=== PATIENT | male | born 1980 | race Caucasian/White ===

== ENCOUNTER 2016-08-16 11:03 | Emergency (ER) | payer BC, OTHER ==
[~2016-08-16] VITALS: Ht 170.2 cm; Wt 92.1 kg
[2016-08-16] MEDS ORDERED: GI COCKTAIL 50ML BTL(HYOSCYAMINE/MAALOX/LIDOCAINE VISCOUS)(1:3:1) PO ONE (12:15)
[2016-08-16] MEDS ORDERED: SUCRALFATE 1 GM TAB PO ONE (12:15)
[2016-08-16] MEDS ORDERED: SUCR1SS PO (12:40)
[2016-08-16] MEDS ORDERED: PROT1TAB2 PO (12:40)
[2016-08-16 12:58] VITALS: BP 117/65
== END 2016-08-16 13:00 | disposition home or self-care (01) ==
LOC: M ED 11:59
DX: K27.9 Peptic ulcer, site unspecified, unspecified as acute or chronic, without hemorrhage or perforation (principal); K21.9 Gastro-esophageal reflux disease without esophagitis; R10.9 Unspecified abdominal pain

== ENCOUNTER → 2016-11-18 | Outpatient (REF) | payer BC, OTHER ==
[~2016-11-18] MED LIST: PROT1TAB2 PO; SUCR1SS PO
[2016-11-18 11:09] LABS: ANION GAP 6 MEQ/L (8-16); BLOOD UREA NITROGEN 16 MG/DL (7-18); CALCIUM LEVEL 8.9 MG/DL (8.5-10.1); CARBON DIOXIDE LEVEL 29 MEQ/L (21-32); CHLORIDE LEVEL 108 MEQ/L (98-107); CHOLESTEROL LEVEL 169 MG/DL (<200); GLOMERULAR FILTRATION RATE > 60.0 (>60); GLUCOSE, FASTING 87 MG/DL (70-105); POTASSIUM SERUM 4.4 MEQ/L (3.5-5.1); SODIUM LEVEL 143 MEQ/L (136-145); TRIGLYCERIDES LEVEL 120 MG/DL (<150)
== END ==
LOC: M LABDRAW1 10:14
PROVIDERS: ATTEND Physician Assistant
DX: Z82.49 Family history of ischemic heart disease and other diseases of the circulatory system (principal)

== ENCOUNTER → 2016-12-01 | Outpatient (CLI) | payer BC, OTHER ==
[~2016-12-01] MED LIST changes: +GASTROGRAFIN SOLUTION 30ML (Q9963) As Ordered ONE; +ISOVUE-370 76% 100ML VIAL (Q9967) As Ordered ONE
--- NOTE | 2016-12-02 04:44 | REP ---
Clinical: Left lower quadrant pain. Technique: Axial contrast enhanced images from the lung bases to the pubic symphysis using oral and 100 ml Isovue 370 intravenous contrast material with precontrast images of the abdomen as well as coronal and sagittal re-formations. Comparison: 07/20/2015. Findings: Lung bases are clear. Incidental calcified granuloma in the medial right lower lobe identified. Visualized portions of the heart and pericardium normal. Liver, spleen, pancreas, gallbladder, bilateral adrenal glands and kidneys are normal. The enteric system is without obstruction or acute inflammatory process and a normal terminal ileum is identified in the right lower quadrant. Few scattered sigmoid diverticula noted without acute diverticulitis. Pelvis demonstrates normal bladder and age appropriate prostate/seminal vesicles. No ascites. No adenopathy. No free air. Vasculature normal. No mass lesion identified. Surrounding musculoskeletal structures are intact. Impression: 1. No acute abdominopelvic pathology appreciated. 2. Few scattered sigmoid diverticula without acute diverticulitis. Signed by Lucio Hermosillo MD 12/02/2016 04:36 A
== END ==
LOC: M RAD 07:21
PROVIDERS: ATTEND Physician Assistant
DX: K57.92 Diverticulitis of intestine, part unspecified, without perforation or abscess without bleeding (principal); R10.32 Left lower quadrant pain
CPT/HCPCS: 74178; Q9963; Q9967

== ENCOUNTER 2017-06-07 21:28 | Emergency (ER) | payer BC, OTHER | END 2017-06-07 23:11 | disposition left against medical advice (07) | LOC: M ED 21:28 | DX: Z53.29 Procedure and treatment not carried out because of patient's decision for other reasons (principal) ==

== ENCOUNTER 2017-12-09 11:47 | Day surgery (SDC) | payer BC, OTHER ==
[2017-12-09] MEDS ORDERED: PROPOFOL 200 MG/20 ML VIAL As Ordered ×2 (12:13→13:22)
[2017-12-09] MEDS ORDERED: LIDOCAINE 2% INJ 100 MG/5 ML SDV (FOR ANES.) As Ordered (12:13)
[2017-12-09] MEDS: NS 1,000 ML IV (12:46)
[2017-12-09] MEDS ORDERED: fentaNYL 100 MCG/2 ML INJECTION (J3010) As Ordered (13:02)
== END 2017-12-09 13:58 | disposition home or self-care (01) ==
LOC: M OPP 11:47
DX: K62.5 Hemorrhage of anus and rectum (principal); Z83.71 Family history of colonic polyps; K59.00 Constipation, unspecified; K57.30 Diverticulosis of large intestine without perforation or abscess without bleeding; K64.2 Third degree hemorrhoids; K64.1 Second degree hemorrhoids; R10.13 Epigastric pain; R14.0 Abdominal distension (gaseous); K31.89 Other diseases of stomach and duodenum; M25.50 Pain in unspecified joint; R06.83 Snoring; F17.220 Nicotine dependence, chewing tobacco, uncomplicated
CPT/HCPCS: 45378

== ENCOUNTER 2017-12-17 19:54 | Emergency (ER) | payer BC, OTHER ==
[2017-12-17] MEDS: DERMABOND TOPICAL SKIN ADHESIVE TOP (21:14)
== END 2017-12-17 21:20 | disposition home or self-care (01) ==
LOC: M ED 19:54
DX: S00.03XA Contusion of scalp, initial encounter (principal); W22.09XA Striking against other stationary object, initial encounter; Y92.098 Other place in other non-institutional residence as the place of occurrence of the external cause
CPT/HCPCS: 12001

== ENCOUNTER → 2018-02-04 | Outpatient (REF) | payer OTHER | LOC: M LAB REF 15:58 | DX: D23.5 Other benign neoplasm of skin of trunk (principal) | CPT/HCPCS: 88305 ==